=== PATIENT | male | born 1960 | race Caucasian/White ===

== ENCOUNTER 2021-08-20 19:19 | Emergency (ER) | payer OTHER ==
--- NOTE | 2021-08-20 19:24 | ERPHSYRPT ---
- History of Present Illness Time Seen by Provider: 08/20/21 19:24 Source: patient Exam Limitations: no limitations Physician History: This is a 60-year-old white male who has a history of hypertension and a 3-week history of itchy skin lesions that are mostly present in the bilateral upper and lower extremities. He has been scratching. He was seen in an urgent care setting and given a prescription for Bactroban topical ointment which seemed to improve his symptoms but only briefly. Patient has no known new exposures. He cleaned his close and bedding and searched for any bedbugs and could not find any. He lives with a family member and they do not have the similar findings. Patient was in [place] little bit more than 3 weeks ago and slept in a shady hotel. He is never had anything like this before Timing/Duration: week(s) (3) Quality: itchy Severity: moderate Location: extremities (Lateral upper and lower) Possible Causes: no cause identified Modifying Factors: Improves With: scratching Associated Symptoms: denies symptoms Allergies/Adverse Reactions: No Known Drug Allergies Allergy (Verified 08/20/21 19:45) Home Medications: Amlodipine Besylate [Norvasc] 10 mg PO DAILY 08/20/21 [History] Carvedilol [Coreg] 25 mg PO BID 08/20/21 [History] Lisinopril 20 mg [Zestril 20 MG] 20 mg PO DAILY 08/20/21 [History] Lisinopril/Hydrochlorothiazide [Lisinopril-Hctz 20-12.5 mg Tab] 1 each PO DAILY 08/20/21 [History] Spironolactone 25 mg [Aldactone 25 MG] 25 mg PO DAILY 08/20/21 [History] Travel Risk - International Travel Have you traveled outside of the country in past 3 weeks: No - Coronavirus Screening Are you exhibiting any of the following symptoms?: No Close contact with a COVID-19 positive Pt in past 14-21 Days: No - Review of Systems Constitutional: No Symptoms Eyes: No Symptoms Ears, Nose, & Throat: No Symptoms Respiratory: No Symptoms Cardiac: No Symptoms Abdominal/Gastrointestinal: No Symptoms Genitourinary Symptoms: No Symptoms Musculoskeletal: No Symptoms Skin: Other (New punctated eschar skin lesions of bilateral upper and lower extremities that itch) Neurological: No Symptoms Psychological: No Symptoms Endocrine: No Symptoms Hematologic/Lymphatic: No Symptoms Immunological/Allergic: No Symptoms All Other Systems: Reviewed and Negative - Past Medical History Pertinent Past Medical History: Yes Cardiac History: Hypertension - Past Surgical History Past Surgical History: Yes - Nursing Vital Signs Nursing Vital Signs: Initial Vital Signs Temperature 97.3 F 08/20/21 19:28 Pulse Rate 81 08/20/21 19:28 Respiratory Rate 16 08/20/21 19:28 Blood Pressure 179/99 08/20/21 19:28 O2 Sat by Pulse Oximetry 99 08/20/21 19:28 Pain Scale Pain Intensity 0 - Physical Exam General Appearance: no apparent distress, alert, anxiety Eye Exam: PERRL/EOMI, eyes nml inspection Ears, Nose, Throat Exam: normal ENT inspection, moist mucous membranes Neck Exam: normal inspection, non-tender, supple, full range of motion Respiratory Exam: airway intact, No chest tenderness, No respiratory distress Gastrointestinal/Abdomen Exam: No tenderness Back Exam: normal inspection, normal range of motion, No CVA tenderness, No vertebral tenderness Extremity Exam: normal range of motion, pelvis stable, other (Multiple skin lesions as described above on both upper and lower extremities) Neurologic Exam: alert, oriented x 3, cooperative, parts driver II-XII nml as tested, normal mood/affect, nml cerebellar function, nml station & gait, sensation nml Skin Exam: rash (As described above) Lymphatic Exam: No adenopathy SpO2 Interpretation: normal O2 Delivery: Room Air - Course Nursing assessment & vital signs reviewed: Yes - Progress Progress: unchanged Counseled pt/family regarding: diagnosis, need for follow-up - Departure Departure Disposition: Home Clinical Impression: Rash and nonspecific skin eruption Condition: Stable Critical Care Time: No Additional Instructions: Keep areas clean with soap and water. Do not scratch. Keep your skin moist with unscented lotion twice a day. Take your medications as prescribed. Call your primary care doctor today for further management Prescriptions: Mupirocin [Bactroban OINTMENT] 1 applic TP TID 5 Days #15 gm Prednisone 10 mg [Deltasone 10 mg] 10 mg PO TID #12 tablet Doxycycline Hyclate 100 mg [Vibramycin 100 MG] 100 mg PO BID #14 tab
[2021-08-20 20:25] VITALS: BP 151/66; PULSE 72; O2SAT 96
== END 2021-08-20 20:25 | disposition home or self-care (01) ==
LOC: ED 19:19
DX: R21 Rash and other nonspecific skin eruption (principal); I10 Essential (primary) hypertension
CPT/HCPCS: 99283